=== PATIENT | female | born 1980 | race Caucasian/White ===

== ENCOUNTER 2017-03-22 09:02 | Emergency (ER) | payer OTHER ==
[2017-03-22] MEDS ORDERED: Sodium Chloride 0.9% 1,000 ML IV ONE (09:15)
[2017-03-22] MEDS ORDERED: Ketorolac 30 MG/ML SDV IVPUSH ONE (09:15)
--- NOTE | 2017-03-22 09:34 | EDM.PDOC ---
ED HPI GENERAL MEDICAL PROBLEM - General Chief Complaint: Back Pain or Injury Stated Complaint: ALL OVER PAIN Time Seen by Provider: 03/22/17 09:03 - History of Present Illness INITIAL COMMENTS - FREE TEXT/NARRATIVE: HISTORY AND PHYSICAL: History of present illness: This is a 36-year-old female with a past history of complex regional pain syndrome presenting to the emergency department with a chief complaint of left shoulder and scapula pain. Patient tells me that she had a fall this this morning, and since then she has been practically unable to move her left arm and then agree to pain. She describes it as a ripping pain. She has not felt anything like this in the past. She tells me that she is on multiple narcotics for pain control. She however states that this flareup is worse than ever. She denies any chest pain, shortness of breath, fevers, chills. She denies any numbness or tingling. She has no other complaints. Review of systems: As per history of present illness and below otherwise all systems reviewed and negative. Past medical history: As per history of present illness and as reviewed below otherwise noncontributory. Surgical history: As per history of present illness and as reviewed below otherwise noncontributory. Social history: No reported history of drug or alcohol abuse. Family history: As per history of present illness and as reviewed below otherwise noncontributory. Physical exam: HEENT: Atraumatic, normocephalic, pupils reactive, negative for conjunctival pallor or scleral icterus, mucous membranes moist, throat clear, neck supple, nontender, trachea midline. Lungs: Clear to auscultation, breath sounds equal bilaterally, chest nontender. Heart: S1S2, regular, negative for clicks, rubs, or JVD. Abdomen: Soft, nondistended, nontender. Negative for masses or hepatosplenomegaly. Negative for costovertebral tenderness. Pelvis: Stable nontender. Genitourinary: Deferred. Rectal: Deferred. Extremities: Atraumatic, negative for cords or calf pain. Neurovascular unremarkable. Minimal ability to abduct at the left shoulder secondary to pain. Teleradiologist strength 5/5 bilaterally. Diagnostics: CBC CMP B-hcg Shoulder X-ray Left Therapeutics: IV Ketorolac 30mg once Impression: Regional pain syndrome acute exacerbation Plan: Discharge home left upper back Pain Score (Numeric/FACES): 10 - Related Data Allergies Allergy/AdvReac Type Severity Reaction Status Date / Time acetaminophen [From Percocet] Allergy Difficulty Verified 03/22/17 09:26 Breathing ciprofloxacin Allergy Difficulty Verified 03/22/17 09:26 Breathing [place] And Derivatives Allergy Rash Verified 03/22/17 10:39 doxycycline Allergy Cardiac Verified 03/22/17 09:26 Arrest erythromycin base Allergy Rash Verified 03/22/17 09:26 gabapentin Allergy Seizure Verified 03/22/17 09:26 iodine Allergy Anaphylactic Verified 03/22/17 09:26 Shock meperidine [From Demerol] Allergy Rash Verified 03/22/17 10:39 morphine Allergy Anaphylactic Verified 03/22/17 09:26 Shock oxycodone [From Percocet] Allergy Difficulty Verified 03/22/17 09:26 Breathing Penicillins Allergy Cardiac Verified 03/22/17 09:26 Arrest promethazine [From Phenergan] Allergy Anaphylactic Verified 03/22/17 09:26 Shock venlafaxine Allergy Arrhythmias Verified 03/22/17 09:26 Home Meds: Home Meds Albuterol/Ipratropium [DuoNeb 3.0-0.5 MG/3 ML] 3 ml NEB Q6HRRT 03/22/17 [History ] Baclofen 10 mg PO TID 03/22/17 [History] Divalproex Sodium [Divalproex Sodium ER] 1 tab PO DAILY 03/22/17 [History] Fexofenadine [Summer] 1 tab PO DAILY 03/22/17 [History] HYDROmorphone [Dilaudid] 2 mg PO TID 03/22/17 [History] Methocarbamol 500 mg PO BEDTIME 03/22/17 [History] Montelukast [Singulair] 10 mg PO ASDIRECTED 03/22/17 [History] Ondansetron [Zofran] 4 mg PO BID PRN 03/22/17 [History] Orphenadrine [Norflex] 100 mg PO BEDTIME 7 Days 03/22/17 [Rx] Prazosin [Minpress] 1 mg PO BEDTIME 03/22/17 [History] cloNIDine 1 each TD ASDIRECTED 03/22/17 [History] hydrOXYzine HCl [Atarax] 50 mg PO TID PRN 03/22/17 [History] ED ROS GENERAL - Review of Systems Review Of Systems: See Below ED EXAM, UPPER BACK/NECK PAIN - Physical Exam Exam: See Below Course - Vital Signs Last Recorded V/S: Last Vital Signs Temp 36.6 C 03/22/17 09:08 Pulse 71 03/22/17 11:08 Resp 14 03/22/17 11:08 BP 122/87 03/22/17 11:08 Pulse Ox 98 03/22/17 11:08 - Orders/Labs/Meds Orders: Active Orders 24 hr Category Date Time Status EKG Documentation Completion [RC] STAT Care 03/22/17 09:52 Active Orphenadrine [Norflex] Med 03/22/17 11:00 Active 60 mg IM Q12H Medication Orders Orphenadrine Citrate (Norflex) 60 mg IM Q12H RAFAELA Last Admin: 03/22/17 11:06 Dose: 60 mg Labs: Laboratory Tests 03/22/17 03/22/17 03/22/17 Range/Units 09:46 09:46 11:00 WBC 5.26 (4.0-11.0) K/uL RBC 4.27 L (4.30-5.90) M/uL Hgb 12.7 (12.0-16.0) g/dL Hct 37.7 (36.0-46.0) % MCV 88.3 (80.0-98.0) fL MCH 29.7 (27.0-32.0) pg MCHC 33.7 (31.0-37.0) g/dL RDW Std Deviation 43.0 (28.0-62.0) fl RDW Coeff of Sherry 14 (11.0-15.0) % Plt Count 247 (150-400) K/uL MPV 10.20 (7.40-12.00) fL Neut % (Auto) 46.4 L (48.0-80.0) % Lymph % (Auto) 44.5 H (16.0-40.0) % [place] % (Auto) 7.8 (0.0-15.0) % Eos % (Auto) 1.1 (0.0-7.0) % Baso % (Auto) 0.2 (0.0-1.5) % Neut # (Auto) 2.4 (1.4-5.7) K/uL Lymph # (Auto) 2.3 (0.6-2.4) K/uL [place] # (Auto) 0.4 (0.0-0.8) K/uL Eos # (Auto) 0.1 (0.0-0.7) K/uL Baso # (Auto) 0.0 (0.0-0.1) K/uL Sodium 139 (136-146) mmol/L Potassium 3.8 (3.5-5.1) mmol/L Chloride 109 (98-110) mmol/L Carbon Dioxide 22 (21-31) mmol/L BUN 11 (6.0-23.0) mg/dL Creatinine 0.8 (0.6-1.5) mg/dL Est Cr Clr Drug Dosing 91.01 mL/min Estimated GFR (MDRD) > 60.0 ml/min Glucose 103 (60-110) mg/dL Calcium 9.1 (8.8-10.8) mg/dL Total Bilirubin 0.4 (0.1-1.5) mg/dL AST 15 (5-40) IU/L ALT 16 (8-54) IU/L Alkaline Phosphatase 42 (40-150) Troponin I < 0.10 (0.0-0.29) NG/ML Total Protein 6.7 (6.0-8.0) g/dL Albumin 4.2 (3.5-5.0) g/dL Globulin 2.5 (2.0-3.5) g/dL Albumin/Globulin Ratio 1.7 (1.3-2.8) HCG, Qual (NEG) 03/22/17 Range/Units 11:00 WBC (4.0-11.0) K/uL RBC (4.30-5.90) M/uL Hgb (12.0-16.0) g/dL Hct (36.0-46.0) % MCV (80.0-98.0) fL MCH (27.0-32.0) pg MCHC (31.0-37.0) g/dL RDW Std Deviation (28.0-62.0) fl RDW Coeff of Sherry (11.0-15.0) % Plt Count (150-400) K/uL MPV (7.40-12.00) fL Neut % (Auto) (48.0-80.0) % Lymph % (Auto) (16.0-40.0) % [place] % (Auto) (0.0-15.0) % Eos % (Auto) (0.0-7.0) % Baso % (Auto) (0.0-1.5) % Neut # (Auto) (1.4-5.7) K/uL Lymph # (Auto) (0.6-2.4) K/uL [place] # (Auto) (0.0-0.8) K/uL Eos # (Auto) (0.0-0.7) K/uL Baso # (Auto) (0.0-0.1) K/uL Sodium (136-146) mmol/L Potassium (3.5-5.1) mmol/L Chloride (98-110) mmol/L Carbon Dioxide (21-31) mmol/L BUN (6.0-23.0) mg/dL Creatinine (0.6-1.5) mg/dL Est Cr Clr Drug Dosing mL/min Estimated GFR (MDRD) ml/min Glucose (60-110) mg/dL Calcium (8.8-10.8) mg/dL Total Bilirubin (0.1-1.5) mg/dL AST (5-40) IU/L ALT (8-54) IU/L Alkaline Phosphatase (40-150) Troponin I (0.0-0.29) NG/ML Total Protein (6.0-8.0) g/dL Albumin (3.5-5.0) g/dL Globulin (2.0-3.5) g/dL Albumin/Globulin Ratio (1.3-2.8) HCG, Qual NEGATIVE (NEG) Meds: Medications Generic Name Dose Route Start Last Admin Trade Name Freq PRN Reason Stop Dose Admin Orphenadrine Citrate 60 mg 03/22/17 11:00 03/22/17 11:06 Norflex IM 60 mg Q12H RAFAELA Administration Discontinued Medications Generic Name Dose Route Start Last Admin Trade Name Freq PRN Reason Stop Dose Admin Sodium Chloride 1,000 mls @ 999 mls/hr 03/22/17 09:15 03/22/17 09:37 Normal Saline IV 03/22/17 10:15 999 mls/hr STAT ONE Administration Ketorolac Tromethamine 30 mg 03/22/17 09:15 03/22/17 09:37 Toradol IVPUSH 03/22/17 09:16 30 mg ONETIME ONE Administration Departure - Departure Time of Disposition: 11:51 Disposition: Home, Self-Care 01 Condition: Good Clinical Impression: Complex regional pain syndrome - Discharge Information Prescriptions: Orphenadrine [Norflex] 100 mg PO BEDTIME 7 Days Referrals: PCP,None [Primary Care Provider] - Forms: ED Department Discharge Additional Instructions: The following information is given to patients seen in the emergency department who are being discharged to home. This information is to outline your options for follow-up care. We provide all patients seen in our emergency department with a follow-up referral. The need for follow-up, as well as the timing and circumstances, are variable depending upon the specifics of your emergency department visit. If you don't have a primary care physician on staff, we will provide you with a referral. We always advise you to contact your personal physician following an emergency department visit to inform them of the circumstance of the visit and for follow-up with them and/or the need for any referrals to a consulting specialist. The emergency department will also refer you to a specialist when appropriate. This referral assures that you have the opportunity for follow-up care with a specialist. All of these measure are taken in an effort to provide you with optimal care, which includes your follow-up. Under all circumstances we always encourage you to contact your private physician who remains a resource for coordinating your care. When calling for follow-up care, please make the office aware that this follow-up is from your recent emergency room visit. If for any reason you are refused follow-up, please contact the [facility] Emergency Department at and asked to speak to the emergency department charge nurse. Physical prescription as prescribed. Please follow-up with her primary care provider. Please seek further medical attention if you experience any nausea, vomiting, fever, chills, chest pain or shortness of breath. - My Orders Last 24 Hours: My Active Orders 03/22/17 09:52 EKG Documentation Completion [RC] STAT 03/22/17 11:00 Orphenadrine [Norflex] 60 mg IM Q12H - Assessment/Plan Last 24 Hours: My Active Orders 03/22/17 09:52 EKG Documentation Completion [RC] STAT 03/22/17 11:00 Orphenadrine [Norflex] 60 mg IM Q12H
[2017-03-22 10:15] LABS: CHLORIDE,CL 109 mmol/L (98-110); SODIUM,NA 139 mmol/L (136-146)
[2017-03-22 13:19] VITALS: BP 104/66
== END 2017-03-22 12:30 | disposition home or self-care (01) ==
LOC: MW.ED 09:02
DX: G90.512 Complex regional pain syndrome I of left upper limb (principal); Z88.1 Allergy status to other antibiotic agents; Z88.5 Allergy status to narcotic agent; Z88.8 Allergy status to other drugs, medicaments and biological substances; Z88.0 Allergy status to penicillin; Z79.899 Other long term (current) drug therapy; W19.XXXA Unspecified fall, initial encounter
CPT/HCPCS: 36415; 80053; 84484; 84703; 85025; 93005; 96361; 96372; 96374; 99284; J1885; J2360; J7040